=== PATIENT | male | born 1935 | race Caucasian/White ===

== ENCOUNTER → 2020-10-21 | Outpatient (CLI) | payer MEDICARE, OTHER ==
--- NOTE | 2020-10-21 17:19 | CARDNUC ---
[place] [address] CARDIAC NUCLEAR IMAGING REPORT Name: HALEY BORGES Room: [facility]#: [id number] Admission: 10/21/20 Attend Phys: Latrell Lao Discharge: Date of : 33 Date of Service: 10/21/20 1718 Report #: [id number] THIS REPORT FOR: cc: ELIO TALBERT Physician not on staff Husam Acosta MD [facility] ~ APPROVED REPORT Imaging Protocol: Rest Tc-99m/Stress Tc-99m 1 day Study performed: 10/21/2020 12:49:00 Indication: Dyspnea Patient Location: Out-Patient Stress Tech: Abimbola Olson Stress Nurse: Ondina Goncalves RN NM Tech:MARC Orta Ht: 5 ft 10 in Wt: 219 lbs BSA: 2.17 m2 BMI: 31.41 Medical History Medical History: HTN, Hyperlipidemia, CAD s/p [place], CAD s/p stent Medications: apixaban, asa-81, diltiazem, losartan, metoprolol, simvastatin Allergies: No known drug allergies Cardiac Risk Factors: Age, HTN, Hyperlipidemia, Past Smoker Previous Cardiac Procedures: PCI, Myocardial infarction Exercise History: Indeterminate Resting Data Rest SPECT myocardial perfusion imaging was performed in supine position 30 minutes following the intravenous injection of 10.0 mCi of Tc-99m Sestamibi. Time of rest injection: 1255 Date: 10/21/2020 The images were gated to evaluate regional wall motion and calculate left ventricular ejection fraction. Administration Route: IV Administration Site: Right Wrist Pharmacologic Stress Pharmacologic stress test was performed by injecting Regadenoson 0.4 mg IV push over 10-15 seconds immediately followed by the intravenous injection of 34.0 mCi of Tc-99m [place] [address] CARDIAC NUCLEAR IMAGING REPORT Name: HALEY BORGES Room: [facility]#: [id number] Admission: 10/21/20 Attend Phys: Latrell Lao Discharge: Date of : 33 Date of Service: 10/21/20 1718 Report #: [id number] Time of stress injection: 1435 Date: 10/21/2020 Administration Route: IV Administration Site: Right Wrist Gated Stress SPECT was performed 40 minutes after stress injection. The images were gated to evaluate regional wall motion and calculate left ventricular ejection fraction. Prone imaging was performed. Stress Test Details Stress Test: Pharmacologic stress testing performed using 0.4 mg of regadenoson per 5 mL given IV over 10 seconds. HR Max Heart Rate (APMHR): 134 bpm Resting HR: 75 bpm Target HR (85% APMHR): 113 bpm Max HR Achieved: 107 bpm % of APMHR: 79 Recovery HR: 102 bpm BP Resting BP: 141/87 mmHg Max BP: 103/57 mmHg Recovery BP: 124/72 mmHg ECG Resting ECG: Atrial Fibrillation Stress ECG: Atrial Fibrillation ST Change: None Arrhythmia: VPC's Recovery ECG: Atrial Fibrillation Recovery ST Change: None Recovery Arrhythmia: VPC's Clinical Reason for Termination: Completed protocol The patient tolerated Lexiscan infusion without significant cardiac symptoms. Nurse Comments pt too unsteady on feet to walk on treadmill Stress ECG Conclusion The baseline twelve-lead EKG shows atrial fibrillation. EKGs obtained during and post Lexiscan infusion show atrial fibrillation with frequent unifocal premature ventricular contractions and occasional [place] [address] CARDIAC NUCLEAR IMAGING REPORT Name: JONYHALEY Jimenez [id number] Admission: 10/21/20 Attend Phys: Latrell Lao Discharge: Date of : 33 Date of Service: 10/21/20 1718 Report #: [id number] Study Quality Study: Good Artifact: Moderate Diaphragmatic artifact Study Data At rest, the left ventricular ejection fraction was 27%.. Post stress, the left ventricular ejection was 22%.. TID = 1.15. Perfusion Perfusion images obtained at rest and post Lexiscan stress show a large in size severe in intensity fixed defect involving the basal to apical lateral wall and inferolateral wall. Wall Motion Global LV systolic function is severely decreased. There is akinesis of the basal to distal lateral wall and distal inferolateral wall as well as majority of the apex. 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 No reversible defects are identified. LV systolic function is severely decreased. This is a high risk study based on severe LV systolic dysfunction and findings of underlying ischemic cardiomyopathy. <Conclusion> The baseline twelve-lead EKG shows atrial fibrillation. EKGs obtained during and post Lexiscan infusion show atrial fibrillation with frequent unifocal premature ventricular contractions and occasional ventricular bigeminy. <ELECTRONICALLY SIGNED> By: Husam Acosta MD, FACC 10/21/201717 17 17 Husam Acosta MD, FACC /INF
== END ==
LOC: M.NUC 10-17 14:39
PROVIDERS: ATTEND Internal Medicine
DX: I48.91 Unspecified atrial fibrillation (principal); I25.10 Atherosclerotic heart disease of native coronary artery without angina pectoris

== ENCOUNTER → 2020-11-11 | Outpatient (CLI) | payer MEDICARE, OTHER ==
[2020-11-11] VITALS (8 sets, daily range): BP systolic 112–129; BP diastolic 53–58
[~2020-11-11] VITALS: Ht 182.9 cm; Wt 98.9 kg
[~2020-11-11] MED LIST: ADULT LOW DOSE81 MG PO; ALLOPURINOL 30300 M1 PO; COZAAR 25 MG TA25 M2 PO; DILTIAZEM ER180 M2 PO; EFFEXOR XR75 MG PO; FLOMAX0.4 MG PO; MITIGARE0.6 MG PO; MOBIC7.5 M1 PO; PRILOSEC OTC20 MG PO; SIMVASTATIN40 MG PO; SYNTHROID175 MC1 PO; TOPROL XL50 MG PO; TRAMADOL 50 MG50 MG PO
[2020-11-11 08:22] LABS: HEMATOCRIT 36.6 % (42.0-52.0); HEMOGLOBIN 12.3 gm/dL (14.0-18.0); MCH 31.8 pg (26.0-34.0); MCHC 33.5 g/dL (28.0-37.0); MPV 7.8 fl. (7.2-11.1); RBC 3.86 mil/uL (4.50-6.00); RDW-CV 14.7 % (10.5-14.5); WBC 6.8 thou/uL (4.0-11.0)
[2020-11-11 08:30] LABS: ANION GAP 8 mmol/L (7-16); BUN 23 mg/dL (7-18); CALCIUM 8.3 mg/dL (8.5-10.1); CHLORIDE 109 mmol/L (98-107); CO2 25 mmol/L (21-32); GLUCOSE 99 mg/dL (70-99); POTASSIUM 4.4 mmol/L (3.5-5.1); SODIUM 142 mmol/L (136-145)
[2020-11-11 08:34] LABS: APTT 24.6 Seconds (25.0-31.3); PROTIME 10.5 Seconds (9.20-11.50)
[2020-11-11 08:35] LABS: ALBUMIN 3.5 g/dL (3.4-5.0); ALKALINE PHOSPHATASE 66 U/L (46-116); SERUM ASSESSMENT Clear; SGOT 22 U/L (15-37); SGPT 21 U/L (30-65); TOTAL BILIRUBIN 0.4 mg/dL (<0.1-1.0); TOTAL PROTEIN 6.9 g/dL (6.4-8.2)
[2020-11-11 08:45] LABS: CHOLESTEROL 145 mg/dL (<200); HDL CHOLESTEROL 41 mg/dL (>40); LDL CHOLESTEROL 85 mg/dL (<100); TC:HDL 3.5 Ratio (Not establshd); TRIGLYCERIDE 97 mg/dL (<150); VLDL 19 mg/dL (<40)
--- NOTE | 2020-11-11 14:26 | EKG ---
[place] [address] ELECTROCARDIOGRAM REPORT Name: HALEY BORGES Room: 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: : 1935 Requested By: Tim Nielsen Order Number: [id number] Sariah MD: Tim Nielsen Measurements Intervals [place] Rate: 61 P: AL: QRS: 1 QRSD: 108 T: 88 QT: 432 QTc: 435 Interpretive Statements Sinus rhythm with first-degree AV block Multiple ventricular premature complexes Possible posterior infarct, old Nonspecific T abnormalities, lateral leads No previous ECG available for comparison Electronically Signed On 11-11-2020 14:26:43 CDT by Tim Nielsen [email or web address] <ELECTRONICALLY SIGNED> By: Tim Nielsen MD, [facility] 11/11/20 1426 0852 0852 Tim Nielsen MD, [facility] /EPI
--- NOTE | 2020-11-11 14:43 | CARD ---
[address] [address] CARDIAC CATH REPORT Name: HALEY BORGES Room: [facility]#: [id number] Admission: 11/11/20 Attend Phys: Tim Nielsen MD, Discharge: Date of : 33 Report #: [id number] THIS REPORT FOR: cc: ELIO TALBERT Physician not on staff Tim Nielsen MD [facility] ~ APPROVED REPORT Study performed: 11/11/2020 08:44:03 Patient Details Patient Status: Out-Patient Room #: The patient is a 85 year-old male Event Personnel Tim Nielsen Residential Real Estate Agent, Sierra Carpio RN Crepe Machine Operator, Candace Miles RTR Monitor, Diana Martinez RTR Scrub Procedures Performed Art Access - R femoral artery , Left Heart Cath w/or w/o Coronaries LHC , Hemostasis w/ Mynx Indication Dyspnea, Positive stress test Risk Factors Obesity, Hypercholesterolemia, Hypertension Previous Procedures/Diagnoses Previous PCI Admission/Lab Medications/Medications given during procedure Oxygen Nasal cannula 2 l per min, Midazolam (Versed) IV 1 mg, Fentanyl IV 25 mcg, Lidocaine Subcut 15 ml Procedure Narrative The patient was brought electively to the Cardiac Catheterization Laboratory and was prepped and draped in a sterile manner. The right femoral was infiltrated with 2% Lidocaine subcutaneous anesthesia. IV conscious sedation was used throughout procedure with appropriate monitoring and was performed in the presence of a registered nurse who was an independent trained observer other than the physician performing the procedure. A 6F Ultimum sheath [place] [address] CARDIAC CATH REPORT Name: HALEY BORGES Room: [facility]#: [id number] Admission: 11/11/20 Attend Phys: Tim Nielsen MD, Discharge: Date of : 33 Report #: [id number] right femoral artery. Coronary angiography was performed using coronary diagnostic catheters. The right coronary system was accessed and visualized with a 6F JR4 catheter. The left coronary system was accessed and visualized with a 6F JL5 catheter. The left ventricle was accessed and visualized with a 6F Pigtail catheter. Left ventricular/Aortic Valve gradient assessed via catheter pullback. Left ventriculogram was performed in SAXENA projection. Pre-demployment femoral angiogram was performed . Closure device was deployed with a 6 Fr Mynx. The patient tolerated the procedure well and there were no complications associated with the procedure. There was no hematoma. Intraoperative Conscious Sedation Sedation start time: 09:47 Case end Time: 10:23 Fentanyl 25 mcg Versed 1 mg Fluoro Time: 5.9 minutes Dose: DAP 18494 cGycm2 1041 mGy Contrast Type and Amount: Omnipaque 140 ml Coronary Angiography The patient's coronary anatomy is right dominant. Diagnostic Cath Left Main 0% narrowing LAD 30% mid vessel narrowing Circumflex Moderate size nondominant vessel with 30% mid vessel in-stent narrowing and 100% distal occlusion after the takeoff of the second marginal branch; there was 50% ostial second marginal narrowing Right Coronary Large dominant vessel with 30% mid vessel narrowing Left Ventriculography The left ventricle is normal in size with Moderately decreased contractility. The left ventricular ejection fraction is estimated to be 35%. Left ventricular wall motion abnormalities are present. There is no mitral insufficiency. There is moderate diffuse hypokinesis of LV wall motion. Hemodynamics The aortic pressure is 135/57 mmHg with a mean of 88 mmHg. The left ventricular pressure is 134/7 mmHg with a mean of mmHg. The left ventricular end diastolic pressure is 20 mmHg. [place] [address] CARDIAC CATH REPORT Name: HALEY BORGES Room: [facility]#: [id number] Admission: 11/11/20 Attend Phys: Tim Nielsen MD, Discharge: Date of : 33 Report #: [id number] across the aortic valve upon pullback. Conclusion 1. Coronary artery disease characterized by the following: A 30% mid LAD narrowing B 30% mid circumflex in-stent narrowing with 100% distal occlusion after the takeoff of the second marginal branch; there was 50% ostial second marginal narrowing C large dominant right coronary artery with 30% mid vessel narrowing 2. Moderate diffuse hypokinesis of LV wall motion, estimated ejection fraction 35% 3. Moderate elevation of left ventricular end-diastolic pressure at rest Recommendations Cardiac Risk Reduction Program Aggressive Medical Therapy Diagnostic Cath Approved by: Tim Nielsen MD Date/Time: 11/11/2020 14:40:24 <ELECTRONICALLY SIGNED> By: Tim Nielsen MD, [facility] 11/11/20 1442 144 144Tim Nielsen MD, [facility] /INF
== END | disposition home or self-care (01) ==
LOC: M.CL 07:29
PROVIDERS: ATTEND Internal Medicine
DX: R94.39 Abnormal result of other cardiovascular function study (principal); I25.10 Atherosclerotic heart disease of native coronary artery without angina pectoris; R06.00 Dyspnea, unspecified; I10 Essential (primary) hypertension; E78.00 Pure hypercholesterolemia, unspecified; E03.9 Hypothyroidism, unspecified; E66.9 Obesity, unspecified; Z98.890 Other specified postprocedural states; Z79.899 Other long term (current) drug therapy; Z79.82 Long term (current) use of aspirin; Z20.822 Contact with and (suspected) exposure to COVID-19